=== PATIENT | male | born 1970 | race Hispanic/Latino ===

== ENCOUNTER → 2024-06-21 | Outpatient (CLI) | payer OTHER ==
[2024-06-21 14:34] LABS: BASOPHILS # (AUTO) 0.04 K/uL (0.00-0.20); BASOPHILS % (AUTO) 0.5 % (0.0-5.0); EOSINOPHILS # (AUTO) 0.43 K/uL (0.00-0.70); EOSINOPHILS % (AUTO) 5.4 % (0.0-8.0); HEMATOCRIT 53.1 % (42-54); IMMATURE GRANULOCYTE ABSOLUTE 0.03 K/uL (0-1); LYMPHOCYTES # (AUTO) 1.3 K/uL (1.0-4.8); LYMPHOCYTES % (AUTO) 16.7 % (21.0-51.0); MEAN CORPUSCULAR HEMOGLOBIN 30.9 pg (27.0-33.0); MEAN CORPUSCULAR HGB CONC 33.9 g/dL (32.0-36.0); MEAN CORPUSCULAR VOLUME 91.2 fL (79-99); MONOCYTES # (AUTO) 0.5 K/uL (0.1-1.0); MONOCYTES % (AUTO) 6.3 % (3.0-13.0); NEUTROPHILS # (AUTO) 5.6 K/uL (1.8-7.7); NEUTROPHILS % (AUTO) 70.7 % (40.0-77.0); PLATELET COUNT (AUTO) 185 K/uL (130-400); RED BLOOD CELL COUNT(AUTO) 5.82 MIL/uL (4.50-6.20); RED CELL DISTRIBUTION WIDTH 12.5 % (11.0-15.5); WHITE BLOOD COUNT (AUTO) 7.9 K/uL (4.8-10.8)
[2024-06-21 15:41] LABS: ALBUMIN 4.2 g/dL (3.5-5.0); BILIRUBIN,TOTAL 1.4 mg/dL (0.2-1.0); POTASSIUM 3.8 mmol/L (3.5-5.1); THYROID STIMULATING HORMONE 1.13 uIU/mL (0.36-3.74); TOTAL PROTEIN, SERUM 7.3 g/dL (6.0-8.3)
== END ==
LOC: LAB 13:37
PROVIDERS: ATTEND Internal Medicine
DX: Z12.5 Encounter for screening for malignant neoplasm of prostate (principal); Z13.29 Encounter for screening for other suspected endocrine disorder; I10 Essential (primary) hypertension; E88.810 Metabolic syndrome; E78.2 Mixed hyperlipidemia
CPT/HCPCS: 36415; 80053; 80061; 82043; 82570; 83036; 84153; 84443; 85025

== ENCOUNTER 2024-08-26 06:12 | Emergency (ER) | payer OTHER ==
[~2024-08-26] VITALS: Ht 177.8 cm; Wt 86.6 kg
[2024-08-26] MEDS ORDERED: LIDOCAINE HCL 1% 20 ML VIAL INJ STA (06:18)
[2024-08-26] MEDS: LIDOCAINE HCL 1% 20 ML VIAL ONE (06:30)
--- NOTE | 2024-08-26 06:30 | NUR ---
LIDOCAINE BLOCK DONE BY ED MD. L SHOULDER REDUCED AT THIS TIME. NO CONSCIOUS SEDATION NEEDED AT THIS TIME. REFER TO ED MD'S NOTE.
[2024-08-26] MEDS ORDERED: NAPR-1194 PO (06:31)
--- NOTE | 2024-08-26 06:33 | ERN ---
General Chief Complaint: Shoulder Injury/Pain Stated Complaint: FALL, LEFT SHOULDER DISLOCATION/INJURY Time Seen by MD: 06:14 Source: patient History of Present Illness Initial Comments Patient is a 54-year-old gentleman coming in complaining of left shoulder pain. Per patient he slipped landing in his left shoulder and felt it dislocate. He has had a previous episode of shoulder dislocation. He states that he could not lift his in his decided to come in for further evaluation. Past Medical History Past Medical History: High Cholesterol, Hypertension Past Surgical History: None ROS Dictation CONSTITUTIONAL: No chills, no fever, no weakness, no diaphoresis, no malaise. HEAD/FACE: No signs of trauma. EENT: No eye pain, no blurred vision, no tearing, no double vision, no ear pain, no ear discharge, no nose pain, no nasal congestion, no throat pain, no throat swelling, no mouth pain. RESPIRATORY: No cough, no orthopnea, no SOB, no stridor, no wheezing. CARDIOVASCULAR: No chest pain, no edema, no palpitations, no syncope. GASTROINTESTINAL/ABDOMINAL: No abdominal pain, no constipation, no diarrhea, no nausea, no vomiting. GENITOURINARY: No abnormal discharge, no dysuria, no frequent urination, no hematuria. No complaints of pain in the genitals. MUSCULOSKELETAL: No back pain, no gout, joint pain, joint swelling, no muscle pain, no muscle stiffness, no neck pain. INTEGUMENTARY: No change in color, no change in hair/nails, no dryness, no lesion, no lumps, no rash. NEUROLOGICAL/PSYCH: No anxiety, not depressed, no emotional problem, no headache, no numbness, no pre-existing deficit, no history of seizures, no tremors, no weakness. HEMATOLOGIC/LYMPHATIC: Not anemic, no history of blood clots, no apparent bleeding, no bruising, glands not swollen. All Systems Negative, Except as Noted. Physical Exam Physical Exam Dictation VITAL SIGNS: Reviewed. GENERAL APPEARANCE: Alert, oriented x3, no acute distress, obese. HEAD AND FACE: Non-traumatic. EYES: PERRL, pink conjunctivas, eyelid no trauma, anterior chamber clear. EARS: Pinnas intact and no signs of trauma or erythema. Ear canals clear and no discharge. TMs no erythema. NOSE: No discharge, no bleeding. OROPHARYNX: Mouth normal, teeth no caries, tongue pink. Pharynx clear, no erythema. Tonsils no exudates, no abscesses noted. Mucous membrane moist. NECK: Supple, non-tender, no thyromegaly, no masses, no JVD, no bruits. BREAST: Deferred. CHEST: No tenderness, no crepitus, no paradoxical movement, no retractions. LUNGS: Clear, well-ventilated, symmetric, no rales, no wheezing, no rhonchi, no stridor, good breath sounds bilaterally. HEART: Regular rate, regular rhythm, no murmur, no gallops. VASCULAR: No peripheral edema. ABDOMEN: Soft, positive bowel sounds, nondistended, no guarding, nontender, no rebound, no masses no hepatomegaly, no splenomegaly, no Vasquez's sign, no hernias. RECTAL: Deferred. GENITAL: Deferred. NEUROLOGICAL: Normal speech, gross motor function intact, gross sensory function intact. MUSCULOSKELETAL: Neck nontender, full range of motion, back nontender, full range of motion. EXTREMITIES: Nontender, full range of motion. Left shoulder dislocation SKIN: Color pink, dry, no turgor, no rash, no lacerations, no abrasions, no contusions. LYMPHATICS: Deferred. Results Laboratory and Microbiology Labs Reviewed?: Yes EKG/XRAY/US/CT/MRI X-RAY Comment Left shoulder x-ray-NAD back in place [facility] MDM: Differential diagnosis: Shoulder dislocation, shoulder fracture, Rationale: Tests considered and ordered secondary to shared decision making incl ude: Previous outside records reviewed: Old ER visits. Risk of complication and/or morbidity or mortality of patient management: None Medications-Per medication reconciliation Need for hospitalization: Patient does not meet criteria for hospitalization. Patient is a 54-year-old gentleman coming in complaining of left shoulder discomfort. Due to the discomfort that the patient was presenting with lidocaine intra-articular injection was used. Patient states felt good anesthesia using gentle traction on the left shoulder joint was reduced, x-ray of the shoulder confirmed reduction. Patient will be discharged in stable condition with a sling. ED Course Orders Procedure Category Date Status Time Lidocaine Hcl 1% 20ml PHA 08/26/24 Logged Vial (Lidocaine Hc 06:18 Shoulder Comp 2+Vws Rt RAD 08/26/24 Logged 06:18 Lidocaine Hcl 1% 20ml PHA 08/26/24 Complete Vial (Lidocaine Hc 06:19 Current Medications Medications (Trade) Dose Ordered Sig/Cait Route PRN Reason Start Time Stop Time Status Last Admin Dose Admin Lidocaine HCl (Lidocaine HCl 1% 20ml Vial) 20 ml ONCE STAT INJ 08/26/24 06:18 08/26/24 06:19 UNV Lidocaine HCl (Lidocaine HCl 1% 20ml Vial) 20 ml STK-MED ONCE .ROUTE 08/26/24 06:19 08/26/24 06:20 DC Vital Signs Date Time Temp Pulse Resp B/P (MAP) Pulse Ox O2 Delivery O2 Flow Rate FiO2 08/26/24 06:18 97.9 92 16 151/94 97 Room Air 0 Procedure Dictation Intra-articular joint effusion-lidocaine 1% 8 mL were infused into the left shoulder socket, good anesthesia achieved. Joint Reduction Joint Reduction : Joint Reduction Site: shoulder (L) Conscious Sedation: No Reduction Attempts: 1 Pre-Procedure NV Exam: Yes Post-Procedure NV Exam: Yes post joint reduction film: joint reduced DX & DISP Disposition: Discharge Departure Impression: Primary Impression: Shoulder dislocation Condition: Stable Scripts Naproxen (Naproxen) 500 Mg Tablet 1 TAB PO BID for pain for 7 Days, #14 TAB 0 Refills Prov: TRUDI PATEL MD 08/26/24 Additional Instructions: FOLLOW-UP WITH PRIMARY CARE PROVIDER IN 1 TO 2 DAYS. TAKE MEDICATIONS DIRECTED HERE IN THE EMERGENCY ROOM. OKAY TO CONTINUE HOME MEDICATIONS UNLESS OTHERWISE DISCUSSED DURING YOUR VISIT IN THE EMERGENCY ROOM TODAY. RETURN TO YOUR NEAREST EMERGENCY ROOM IF SYMPTOMS WORSEN OR IF THERE IS NO IMPROVEMENT. CALL 911 IF YOU NEED IMMEDIATE ASSISTANCE. TAKE TYLENOL [id number] NEEDED AND IF NO CONTRAINDICATIONS ARE PRESENT. INCREASE ORAL HYDRATION. A WOUND CULTURE OR URINE CULTURE WAS ORDERED HERE IN THE EMERGENCY ROOM DEPARTMENT PLEASE FOLLOW-UP WITH PRIMARY CARE PROVIDER AND ADVISE THEM TO GET REPORTS FROM OUR FACILITY. IF YOU HAD ANY IMELDA WRAP/SPLINTS THAT WERE APPLIED HERE, PLEASE DO NOT REMOVE THEM UNTIL YOU SEE YOUR PRIMARY CARE OR SPECIALTY. Referrals: Referrals: SOMMER ROACH MD (PCP) SHAR PRICE MD Time of Disposition: 06:31 TRUDI PATEL MD Aug 26, 2024 06:33
--- NOTE | 2024-08-26 06:38 | NUR ---
SHOULDER IMMOBILIZER APPLIED AT THIS TIME PER ED MD.
[2024-08-26 06:39] VITALS: BP 128/79; PULSE 76; RESP 18; TEMP 97.6
--- NOTE | 2024-08-26 07:15 | HMCIMG ---
EXAM: CR left shoulder, 2 View. CLINICAL HISTORY: dislocation COMPARISON: None provided. FINDINGS: BONES: No acute fracture or aggressive appearing osseous lesion. JOINTS: No dislocation. Mild acromioclavicular joint osteoarthritis. SOFT TISSUES: The soft tissues are unremarkable. IMPRESSION: 1. No acute findings. /[place]
== END 2024-08-26 06:49 | disposition home or self-care (01) ==
LOC: EDH 06:12
DX: S43.005A Unspecified dislocation of left shoulder joint, initial encounter (principal); E78.00 Pure hypercholesterolemia, unspecified; I10 Essential (primary) hypertension; W01.0XXA Fall on same level from slipping, tripping and stumbling without subsequent striking against object, initial encounter; Y93.89 Activity, other specified; Y92.89 Other specified places as the place of occurrence of the external cause; Y99.8 Other external cause status
CPT/HCPCS: 23650; 29105; 73030; 99283; 99284

== ENCOUNTER → 2024-09-20 | Outpatient (CLI) | payer OTHER ==
[~2024-09-20] MED LIST: NAPR-1194 PO
--- NOTE | 2024-09-20 13:54 | HMCIMG ---
CLINICAL INFORMATION Shoulder pain, recurrent dislocation. COMPARISON None. TECHNIQUE Multiplanar multisequence MR imaging of the left shoulder without contrast FINDINGS OSSEOUS AND ARTICULAR STRUCTURES Acromioclavicular joint: Mild degenerative changes. Glenohumeral joint: Mild cartilage loss. Small joint effusion. 1.3 cm intra-articular body in the axillary pouch. Bones: Hill-Sachs impaction fracture on the posterior superior humeral head. Associated edema. BURSAE Subacromial/subdeltoid bursa: Normal. Subcoracoid bursa: Normal. ROTATOR CUFF Supraspinatus: Full thickness partial width tear of the anterior fibers, with tendon gap measuring 1.3 cm. Some posterior fibers are intact. Infraspinatus: Tendinosis without tear. Subscapularis: Full-thickness partial width tear of the central fibers. Additional fraying of the superficial fibers. Teres minor: No evidence for tear or tendinopathy. Edema extending into the subscapularis muscle. LABRUM/CAPSULE Labrum: Near circumferential labral degeneration. Glenohumeral ligaments: Normal. MISCELLANEOUS Long head biceps tendon: Intra-articular tendinosis. Rotator interval: Edema. Other: None. IMPRESSION Hill-Sachs impaction fracture on the posterior superior humeral head, subacute-appearing. Full-thickness partial width tear of the anterior fibers of the supraspinatus tendon. Full-thickness partial width tear of the central fibers of the subscapularis tendon. Intra-articular long head biceps tendinosis. Mild acromioclavicular and glenohumeral osteoarthritis. Small glenohumeral joint effusion with 1.3 cm intra-articular body in the axillary pouch. /[place]
== END | disposition home or self-care (01) ==
LOC: RAH 10:31
PROVIDERS: ATTEND Student in an Organized Health Care Education/Training Program
DX: S42.292A Other displaced fracture of upper end of left humerus, initial encounter for closed fracture (principal); M75.122 Complete rotator cuff tear or rupture of left shoulder, not specified as traumatic; M19.012 Primary osteoarthritis, left shoulder; M24.412 Recurrent dislocation, left shoulder; M25.412 Effusion, left shoulder; M67.814 Other specified disorders of tendon, left shoulder; X58.XXXA Exposure to other specified factors, initial encounter; Y93.89 Activity, other specified; Y92.89 Other specified places as the place of occurrence of the external cause; Y99.8 Other external cause status
CPT/HCPCS: 73221

== ENCOUNTER → 2024-12-25 | Outpatient (CLI) | payer OTHER ==
[~2024-12-25] MED LIST changes: +AMLO-517 PO; +ATOR20TA65 PO; +CYCL5TAB3 PO; +HYDR-4060 PO; +HYDR25TA PO; -NAPR-1194 PO
--- NOTE | 2024-12-25 21:51 | HMCIMG ---
EXAM: LUMBAR SPINE RADIOGRAPH, 3 VIEWS Technique: Anteroposterior, lateral, and L5???S1 spot views of the lumbar spine. Clinical Information: Lumbar radiculopathy. Comparison: None. Findings: Multilevel anterior osteophytes, most notable at L2???L3 and L3???L4. Mild multilevel intervertebral disc height loss. Multilevel facet joint hypertrophy. Mild subchondral sclerosis at the left sacroiliac joint. No acute fracture or spondylolisthesis identified. Paraspinal soft tissues are unremarkable. Impression:1. Multilevel spondylosis with mild disc height loss and facet arthropathy; mild left sacroiliac joint degenerative change. 2. No acute osseous abnormality. Given clinical radiculopathy, magnetic resonance imaging of the lumbar spine is recommended for evaluation of nerve root impingement. /[place]
== END | disposition home or self-care (01) ==
LOC: RAH 10:32
PROVIDERS: ATTEND Internal Medicine
DX: M47.26 Other spondylosis with radiculopathy, lumbar region (principal); M46.1 Sacroiliitis, not elsewhere classified
CPT/HCPCS: 72100

== ENCOUNTER → 2025-01-02 | Outpatient (CLI) | payer OTHER ==
--- NOTE | 2025-01-02 15:52 | HMCIMG ---
STUDY: MRI LUMBAR SPINE WITHOUT IV CONTRAST TECHNIQUE : Multiplanar T1 and T2 weighted sequences were obtained through the lumbar spine. ] CLINICAL INDICATION: Spondylosis without myelopathy or radiculopathy. Pain Comparison: X-ray lumbar spine 12/25/2024 FINDINGS: The conus medularis terminates at L1-L2 and is normal in appearance. T12-L1. Preservation of the disc height. No disc herniation. No central canal or neuroforaminal narrowing. L1-L2:. Preservation of the disc height. 1 mm broad-based posterior disc bulge results in minimal central canal and neuroforaminal narrowing without evidence of nerve root impingement. L2-L3: Moderate loss of disc height. Mild to moderate anterior endplate marginal spurring. 3 mm broad-based posterior disc bulge. Mild facet arthrosis and ligamentum flavum hypertrophy.. Mild central canal narrowing. Mild to moderate bilateral neural foraminal narrowing. Contacting on the exiting L2 nerve roots without definite nerve root impingement. L3-L4:. Mild to moderate loss of the disc height. 3 mm broad-based posterior disc bulge. Mild anterior endplate marginal spurring. Mild facet arthrosis.. Mild central canal narrowing. Mild to moderate bilateral neural foraminal narrowing. Contact on the exiting L3 nerve roots without definite nerve root impingement. [ L4-L5:. Moderate loss of disc height.. There is an 8 mm posterior disc protrusion containing an annular disc tear. Mild facet arthrosis and ligamentum flavum hypertrophy. Mild to moderate central canal narrowing.. Mild to moderate bilateral neural foraminal narrowing. Contact on the exiting L4 nerve roots without definite nerve root impingement. There is contact and mild posterior displacement of the descending right L5 nerve root L5-S1:. Mild loss of the disc height.. 2 mm broad-based posterior disc bulge.. Mild central canal and neural foraminal narrowing without evidence of nerve root impingement No spondylolisthesis. No bone marrow edema. Preservation of the vertebral body heights. There is a subcentimeter T2 hyperintense right renal cystic IMPRESSION: 1. No acute findings. 2. Multilevel degenerative disc disease, most severe at L4-L5 with an 8 mm posterior disc protrusion containing an annular tear. 3. Mild to moderate central canal and neural foraminal narrowing at multiple levels, most pronounced at L4-L5. 4. Contact and mild posterior displacement of the descending right L5 nerve root at L4-L5. /[place]
== END | disposition home or self-care (01) ==
LOC: RAH 13:16
PROVIDERS: ATTEND Internal Medicine
DX: M47.816 Spondylosis without myelopathy or radiculopathy, lumbar region (principal); M51.379 Other intervertebral disc degeneration, lumbosacral region without mention of lumbar back pain or lower extremity pain; M48.07 Spinal stenosis, lumbosacral region; M51.26 Other intervertebral disc displacement, lumbar region
CPT/HCPCS: 72148